=== PATIENT | male | born 1995 | race African-American/Black ===

== ENCOUNTER 2016-06-26 21:07 | Emergency (ER) | payer SELFPAY ==
[~2016-06-26] VITALS: Ht 176.5 cm; Wt 73.0 kg
[2016-06-26 21:10] VITALS: BP 127/78; PULSE 64; RESP 16; TEMP 98; O2SAT 97
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
[2016-06-26] MEDS ORDERED: KETOROLAC TROMETHAMINE 60 MG/2 ML (IM) VIAL IM ONE (22:00)
[2016-06-26] MEDS ORDERED: ONDANSETRON ODT 4 MG TAB PO ONE (22:00)
[2016-06-26 22:52] VITALS: BP 121/63; TEMP 98.5
== END 2016-06-26 22:53 | disposition home or self-care (01) ==
LOC: NEPB 21:07
DX: R51 Headache (principal); Z72.0 Tobacco use
CPT/HCPCS: 96372; 99283; J1885